=== PATIENT | female | born 1990 | race Caucasian/White ===

== ENCOUNTER 2016-04-11 12:16 | Outpatient (CLI) | payer OTHER ==
[~2016-04-11] VITALS: Ht 170.2 cm; Wt 69.7 kg
[2016-04-11 12:38] VITALS: BP 116/62; PULSE 83; RESP 18; Ht 170.2 cm; Wt 69.7 kg
[2016-04-11] MEDS ORDERED: PRENAT PO (12:38)
== END 2016-04-11 13:15 | disposition left against medical advice (07) ==
LOC: OBT 12:16 → L-D 12:17 → OBT 13:15
PROVIDERS: ATTEND Obstetrics & Gynecology
DX: R42 Dizziness and giddiness (principal); R06.02 Shortness of breath; O26.893 Other specified pregnancy related conditions, third trimester; Z3A.37 37 weeks gestation of pregnancy
CPT/HCPCS: G0463

== ENCOUNTER 2016-04-11 15:03 | Outpatient (CLI) | payer OTHER ==
[~2016-04-11 15:03] MED LIST: PRENAT PO
--- NOTE | 2016-04-11 15:27 | TRIAGE ---
OB Triage Datetime Report Generated by CPN: 04/11/2016 15:26 Datetime: 04/11/2016 15:19 Time of Arrival: 04/11/2016 14:52 EGA: 37.0 Arrived By: Wheelchair Arrived From: Other Unit in Hospital Chief Complaint: PT BROUGHT HERE FROM PERINATOLOGY TO BE EVAL. FOR C/O DIZZINESS. Movement: Present Contractions: Denies/Absent Rupture of Membranes: Denies Vaginal Bleeding: None Vaginal Discharge: Denies Recent Sexual Intercouse: Denies Abdominal Trauma: Not Applicable Patient Complaints: None Time Provider Notified: 04/11/2016 15:04 Provider Notified: ARDALAN Initial Plan: NST/CBC Datetime: 04/11/2016 12:36 Fall Score: 0 Fall Risk Score Definition: No Risk: No action required Datetime: 04/11/2016 12:32 EGA: 37.0
== END 2016-04-11 15:20 | disposition left against medical advice (07) ==
LOC: OBT 15:03 → L-D 15:04 → OBT 15:20
PROVIDERS: ATTEND General Practice
DX: O26.893 Other specified pregnancy related conditions, third trimester (principal); R42 Dizziness and giddiness; Z3A.37 37 weeks gestation of pregnancy; Z53.21 Procedure and treatment not carried out due to patient leaving prior to being seen by health care provider
CPT/HCPCS: G0463